=== PATIENT | female | born 1965 | race Caucasian/White ===

== ENCOUNTER 2023-12-17 11:24 | Emergency (ER) | payer OTHER, SELFPAY ==
[2023-12-17 11:36] VITALS: BP 108/72; PULSE 99; RESP 18; TEMP 36.2; O2SAT 98
--- NOTE | 2023-12-17 12:25 | ED.BACK ---
HPI - Back Pain/Injury General Chief Complaint: Back Pain/Injury Stated Complaint: back pain Time Seen by Provider: 12/17/23 12:13 Source: patient Mode of arrival: ambulatory Limitations: no limitations History of Present Illness HPI Narrative: 4 YEARS OLD WHITE FEMALE DROVE HERSELF TO THE EMERGENCY ROOM COMPLAINING OF PAIN AT THE RIGHT LOWER BACK RADIATING TO RIGHT LOWER EXTREMITY DOWN TO HER TOES STARTED 2 WEEKS AGO, INTERMITTENT, WORSE WITH CERTAIN POSITION, SHARP, THROBBING. HISTORY OF SIMILAR SYMPTOMS YEARS AGO BUT NOT LIKE THIS 1. PATIENT DENIES BOWEL DYSFUNCTION, BLADDER DYSFUNCTION, ALTERED SENSATION, FOCAL WEAKNESS, OR SADDLE NUMBNESS, Related Data Allergies Allergy/AdvReac Type Severity Reaction Status Date / Time No Known Allergies Allergy Verified 12/17/23 12:34 Review of Systems Review of Systems: All systems reviewed & are unremarkable except as noted in HPI and below Exam Narrative: GENERAL APPEARANCE: WELL-DEVELOPED, WELL-NOURISHED SKIN: NORMAL COLOR HEAD: NORMOCEPHALIC, NONTRAUMATIC EYES: CLEAR CONJUNCTIVA ENT: OROPHARYNX NORMAL, EARS NORMAL, NOSE NORMAL NECK: SUPPLE, NONTENDER CHEST AND RESPIRATORY: AIRWAY PATENT, NO RESPIRATORY DISTRESS, NO ACCESSORY MUSCLE USE HEART: REGULAR RATE/RHYTHM ABDOMEN: SOFT, NONTENDER, NO ORGANOMEGALY, QUIET BOWEL SOUNDS VASCULAR: NORMAL PERIPHERAL PULSES, NORMAL CAPILLARY REFILL. MUSCULOSKELETAL: DIFFUSE TENDERNESS RIGHT BUTTOCK, NO BRUISES OR SWELLING OR RASH, NEUROLOGIC: ALERT AND ORIENTED ?3, PLATE MILL MILL HAND IS NORMAL TESTED, NO GROSS MOTOR DEFICIT, NEGATIVE RIGHT LEG RAISING TEST Course Vital Signs Vital signs: Vital Signs Temperature 36.2 C L 12/17/23 11:36 Pulse Rate 99 12/17/23 11:36 Respiratory Rate 18 12/17/23 11:36 Blood Pressure 108/72 12/17/23 11:36 Pulse Oximetry 98 12/17/23 11:36 Temperature 36.2 C L 12/17/23 11:36 Pulse Rate 99 12/17/23 11:36 Respiratory Rate 18 12/17/23 11:36 Blood Pressure 108/72 12/17/23 11:36 Pulse Oximetry 98 12/17/23 11:36 MDM - Back Pain/Injury MDM Narrative Medical decision making narrative: LOWER BACK MUSCULOSKELETAL PAIN VERSUS SCIATICA IS MY CONCERN NO BLOOD WORKUP OR IMAGING REQUIRED AT THIS TIME. PATIENT DOES NOT HAVE ANY SYMPTOMS OF CAUDA EQUINA. MY PLAN TO GIVE PATIENT DECADRON 10 MG I AM, DISCHARGED ON MEDROL DOSEPAK AND FOLLOW UP WITH FAMILY PHYSICIAN FOR FURTHER EVALUATION AND MANAGEMENT. Differential Diagnosis Differential diagnosis: Likely other ( ABOVE) Critical Care Time Critical Care Time Critical Care Time: No Discharge Plan Discharge Clinical Impression: Sciatica Patient Disposition: Home, Self-Care Condition: Stable Instructions: Lumbar Radiculopathy (ED) Additional Instructions: Return if symptoms are worsening , call your family physician for appointment, take Tylenol as as needed for aches and pain, continue home medications. Prescriptions: New methylprednisolone [Medrol (Riccardo)] 4 mg tablets,dose pack See Rx Instructions PO .COMPLEX Qty: 21 0RF Rx Instructions: orally per package directions Follow-up/Referrals: PHYSICIAN NOT ON STAFF,NONSTAFF [Primary Care Provider] -
[2023-12-17] MEDS: KETOROLAC (*BKC) 60 MG/2 ML VIAL IM (14:24)
[2023-12-17] MEDS: dexAMETHasone SOD PHOS INJ 10 MG/ML 1 ML VIAL IM (14:24)
== END 2023-12-17 15:10 | disposition home or self-care (01) ==
PROVIDERS: Emergency Provider Emergency Medicine
DX: M54.41 Lumbago with sciatica, right side (principal)
CPT/HCPCS: 96372; 99284; J1100; J1885

== ENCOUNTER 2024-03-14 15:36 | Outpatient (CLI) | payer OTHER, SELFPAY ==
--- NOTE | ~2024-03-14 | MR_ITS ---
EXAMINATION: MR lumbar spine wo con DATE: 03/14/2024 16:07 INDICATION: Lumbago. TECHNIQUE: Magnetic resonance imaging (MRI) of the lumbar spine was performed without intravenous con trast. Sequences included sagittal T2-weighted FSE, sagittal T2-weighted FS FSE, sagittal T1-weighted FSE, and axial T2-weighted FSE. COMPARISON: None FINDINGS: There is 6 degrees levocurvature of lumbar spine. There is mild chronic anterior wedging of T11-L1 vertebral bodies. There are Schmorl's nodes at most levels. There is moderately decreased dis c height at L2-L3, severely decreased disc height at L3-L4, and moderately decreased disc height at L 4-L5. The distal spinal cord signal intensity is normal. The conus medullaris is at T12-L1. The follo wing disc levels are specifically discussed: L1-L2: There is a central protrusion. There is mild bilateral facet joint osteoarthritis. There is no neural foraminal stenosis. There is no central canal stenosis. L2-L3: The disc is bulging. There is mild bilateral facet joint osteoarthritis. There is mild bilater al neural foraminal stenosis. There is mild central canal stenosis. L3-L4: The disc is bulging and has an annular fissure. There is mild bilateral facet joint osteoarthr itis. There is mild bilateral neural foraminal stenosis. There is mild central canal stenosis. L4-L5: The disc is bulging and has an annular fissure. There is moderate right and mild left facet rosy int osteoarthritis. There is mild bilateral neural foraminal stenosis. There is mild central canal st enosis. L5-S1: The disc does not extend beyond the endplate margin. There is mild bilateral facet joint osteo arthritis. There is no neural foraminal stenosis. There is no central canal stenosis. IMPRESSION: 1. Severe lumbar spondylosis. Reviewed, dictated and finalized at location A.
== END 2024-03-14 15:37 | disposition home or self-care (01) ==
PROVIDERS: Visit Provider Nurse Practitioner Family
DX: M43.06 Spondylolysis, lumbar region (principal)
CPT/HCPCS: 72148

== ENCOUNTER 2025-04-09 14:43 | Outpatient (CLI) | payer OTHER, SELFPAY ==
--- NOTE | ~2025-04-09 | MR_ITS ---
MR lumbar spine wo con INDICATION: OTHER LOW BACK PAIN . COMPARISON: None. TECHNIQUE: Multiplanar multisequence MRI of the lumbar spine were obtained without infusion of gadolinium. FINDINGS: Glasscock is made of five lumbar vertebrae. There is normal alignment of the lumbar vertebrae. There are diminished disc signal and disc height throughout the lumbar spine. No intrathecal mass is seen. There are no areas of pathologic signal intensity within the bone marrow to suggest an acute fracture or neoplasm. The conus medullaris terminates at the normal level. L1-L2: There is mild disc bulging causing effacement of the anterior thecal sac. No central canal or neural foraminal stenosis. L2-L3: There is mild disc bulging causing mild bilateral neural foraminal narrowing. There is mild central canal narrowing. L3-L4: There is annular disc bulging with disc osteophyte complex resulting in moderate neural foraminal narrowing bilaterally. There is mild central canal narrowing. There are endplate reactive marrow edema noted. L4-L5: There is posterior disc bulging resulting in moderate bilateral neural foraminal narrowing and mild central canal narrowing. L5-S1: No spinal or foraminal stenosis noted. There is no HNP or impingement. IMPRESSION: Degenerative disc disease with disc bulging from L1-L2 through L4-L5. At L3-L4 and L4-L5 there is resulting moderate bilateral neural foraminal narrowing. No severe central canal stenosis. There is no compression fracture or abnormal cord signal intensity. Reviewed, dictated and finalized at location S. [facility]
== END 2025-04-09 14:44 | disposition home or self-care (01) ==
LOC: GOSHIMG 14:44
PROVIDERS: Visit Provider Nurse Practitioner Family
DX: M17.11 Unilateral primary osteoarthritis, right knee (principal); M41.27 Other idiopathic scoliosis, lumbosacral region; M51.369 Other intervertebral disc degeneration, lumbar region without mention of lumbar back pain or lower extremity pain; M79.18 Myalgia, other site; M48.062 Spinal stenosis, lumbar region with neurogenic claudication; M70.61 Trochanteric bursitis, right hip
CPT/HCPCS: 72148